=== PATIENT | female | born 1965 | race Caucasian/White ===

== ENCOUNTER → 2018-03-22 | Outpatient (CLI) | payer BC | END | disposition home or self-care (01) | LOC: US 13:51 | DX: R22.1 Localized swelling, mass and lump, neck (principal) | CPT/HCPCS: 76536 ==

== ENCOUNTER → 2018-03-27 | Outpatient (CLI) | payer BC ==
--- NOTE | 2018-03-27 15:24 | RAD ---
Thyroid ultrasound, 03/27/2018: HISTORY: Neck nodule The right lobe of the gland measures 4.5 x 1.5 x 2.1 cm while the left lobe of the gland measures 3.5 x 0.8 x 1.5 cm. The thyroid gland is heterogeneous with multiple nodules on the right. The largest nodule lies at the junction of the right lobe and isthmus. It measures 3.2 x 1.7 x 1.9 cm. It is partially cystic with internal solid appearing mural components as well as echogenic internal foci. Its margins are smooth. It is somewhat bilobed in configuration. There is a 12 x 9 x 13 mm smooth hypoechoic nodule in the upper pole of the right lobe. This appears to be a solid nodule with internal color flow. No definite internal calcifications are seen. Just inferior to this level in the right lobe there is a similar solid 14 x 10 x 12 mm nodule. More inferiorly in the right lobe there are 2 additional small subcentimeter nodules. The most inferior of these measures 8 x 7 x 8 mm. It is rounded in configuration. There appears to be minimal calcification in its rim. The left lobe of the gland is generally heterogeneous. No discrete left thyroid nodule is seen. IMPRESSION: Multinodular thyroid gland with a dominant mixed cystic and solid nodule at the junction of the isthmus and right lobe as described above. Percutaneous biopsy of of this dominant complex nodule is suggested for further evaluation. The other smaller thyroid nodules are mild to moderately suspicious and may be followed sonographically. Electronically signed by: Burt Nation MD (03/27/2018 3:21 PM) [facility]
== END | disposition home or self-care (01) ==
LOC: US 10:09
PROVIDERS: ATTEND Nurse Practitioner Adult Health
DX: E04.1 Nontoxic single thyroid nodule (principal)
CPT/HCPCS: 76536

== ENCOUNTER → 2020-01-30 | Outpatient (CLI) | payer BC ==
--- NOTE | 2020-01-30 10:41 | RAD ---
Ultrasound of the abdomen 01/30/2020 CLINICAL HISTORY: Elevated alkaline phosphatase. TECHNIQUE: A real-time ultrasound examination of the abdomen was performed. Multiple images were obtained. FINDINGS: The gallbladder is not visualized consistent with a cholecystectomy. The liver is normal in size measuring 13.2 cm in length. No focal abnormality of the liver is seen. The common bile duct measures 5 mm in diameter which is within normal limits. The visualized portions of pancreas is within normal limits. The spleen is normal in size measuring 8.7 cm in length. Both kidneys are within normal limits in size and echogenicity. The right kidney measures 10.6 cm in length. The left kidney measures 10.5 cm in length. No hydronephrosis is seen. The proximal/mid abdominal aorta is not well-visualized due to overlying bowel gas. The visualized portions of the abdominal aorta tapers normally. The visualized inferior vena cava is within normal limits. No free fluid is seen. IMPRESSION: 1. Cholecystectomy. 2. Otherwise negative study. Electronically signed by: Audie Esquivel MD (01/30/2020 10:38 AM) [id number]
--- NOTE | 2020-01-30 10:49 | RAD ---
Thyroid ultrasound 01/30/2020 CLINICAL HISTORY: Multinodular goiter. TECHNIQUE: A real-time ultrasound examination of the thyroid gland was performed. Multiple images were obtained. FINDINGS: Comparison study is dated 03/27/2018. The thyroid gland is mildly enlarged and heterogeneous. It measures 4.8 x 1.6 x 2.1 cm in longitudinal, transverse, and AP dimensions. The left lobe of the thyroid gland measures 3.9 x 1.4 x 1.1 cm in size. Multiple rounded and oval-shaped heterogeneous solid nodules are seen scattered throughout both lobes of the thyroid gland, right greater than left. These measure 3 mm to 1.6 cm in size. These findings are consistent with a multinodular goiter. On the previous examination, the patient had a large complex cystic nodule in the isthmus which has since resolved. The remaining nodules are otherwise essentially unchanged. No new nodule is seen. IMPRESSION: Findings are again seen consistent with a multinodular goiter. The 3.2 cm complex cystic mass seen on the previous examination has resolved. The remaining nodules have not significantly changed. No new nodule is seen. Electronically signed by: Audie Esquivel MD (01/30/2020 10:46 AM) [id number]
== END ==
LOC: US 07:44
PROVIDERS: ATTEND Family Medicine
DX: E04.2 Nontoxic multinodular goiter (principal); R74.8 Abnormal levels of other serum enzymes; Z90.49 Acquired absence of other specified parts of digestive tract
CPT/HCPCS: 76536; 76700

== ENCOUNTER → 2021-03-04 | Outpatient (CLI) | payer BC ==
--- NOTE | 2021-03-05 10:48 | KCIC ---
US THYROID History: Multinodular goiter Comparison: 02/29/2020, 03/27/2018 Technique: Multiple grayscale and color Doppler images of the thyroid gland were obtained. Findings: Right thyroid lobe: 4.1 x 2.3 x 1.9 cm. Left thyroid lobe: 3.7 x 1.0 x 1.4 cm. Isthmus: 0.3 cm. Heterogeneous multinodular thyroid without hyperemia. Nodule #1. Maximum size: 1.1 cm; Other 2 dimensions 1.1 x 0.9 cm. Location: Superior right-lateral. Characteristics: Solid, hypoechoic, peripheral calcification, not tolerant and wide, circumscribed ACR TI-RADS risk category: TR4 (4-6 points): FNA if 1.5 cm, follow-up if 1-1.4 cm in 1, 2, 3, and 5 y ears. Significant change in size (>= 20% in two dimensions and minimal increase of 2 mm): No. Change in features: No. Change in ACR TI-RADS risk category: No. Nodule #2. Maximum size: 1.5 cm; Other 2 dimensions 1.4 x 1.2 cm. Location: Superior right-medial. Characteristics: Solid, heterogeneously hypo and isoechoic, circumscribed, not tolerating than wide, no echogenic foci ACR TI-RADS risk category: TR4 (4-6 points): FNA if 1.5 cm, follow-up if 1-1.4 cm in 1, 2, 3, and 5 y ears. Significant change in size (>= 20% in two dimensions and minimal increase of 2 mm): No. Change in features: No. Change in ACR TI-RADS risk category: No. Nodule #3. Maximum size: 0.9 cm; Other 2 dimensions 0.8 x 0.8 cm. Location: Inferior right. Characteristics: Solid, hypoechoic, peripherally calcified, not wider than tall, circumscribed ACR TI-RADS risk category: TR4 (4-6 points): FNA if 1.5 cm, follow-up if 1-1.4 cm in 1, 2, 3, and 5 y ears. Significant change in size (>= 20% in two dimensions and minimal increase of 2 mm): No. Change in features: No. Change in ACR TI-RADS risk category: No. IMPRESSION: 1. Heterogeneous multinodular thyroid. One year stability of moderately suspicious nodules for which repeat ultrasound is recommended in 1 year. ACR Thyroid Imaging, Reporting And Data System (TI-RADS): White Paper Of The ACR TI-RADS Committee. J [employer]urnal of the [employer], volume 14, issue 5, pages 587-595 (December 2016). Electronically signed by: Huber Enriquez MD (03/05/2021 10:46 AM) [facility]
== END ==
LOC: KCIC US 15:28
PROVIDERS: ATTEND Family Medicine
DX: E04.2 Nontoxic multinodular goiter (principal)
CPT/HCPCS: 76536

== ENCOUNTER → 2021-05-06 | Outpatient (CLI) | payer OTHER ==
--- NOTE | 2021-05-06 16:03 | KCIC ---
EXAM: CT coronary artery calcium screening; radiologist over read. HISTORY: Mixed hyperlipidemia. Family history of coronary artery disease. TECHNIQUE: Computed tomographic images of the chest were obtained without contrast. Multiplanar refor matting was performed. *One or more of the following individualized dose reduction techniques were utilized for this examina tion: 1. Automated exposure control. 2. Adjustment of the mA and/or kV according to patient size. 3. Use of iterative reconstruction technique. COMPARISON: None. FINDINGS: The heart is normal in size. The visualized aorta is normal in caliber. There is no lymphad enopathy. There is no infiltrate, pleural effusion or pneumothorax. There is no suspicious pulmonary nodule. There is minimal lingular and right middle lobe scarring. There is no acute finding involving the upper abdomen. There is no suspicious osseous lesion. Coronary artery calcium score: 0. IMPRESSION: 1. Coronary artery calcium score of 0. No identifiable calcified atherosclerotic plaque. 2. No significant incidental thoracic finding. Electronically signed by: Valentina Brandt MD (05/06/2021 4:01 PM) [id number]
== END ==
LOC: KCIC CT 15:28
PROVIDERS: ATTEND Family Medicine
DX: E78.5 Hyperlipidemia, unspecified (principal); J98.4 Other disorders of lung; Z82.49 Family history of ischemic heart disease and other diseases of the circulatory system
CPT/HCPCS: 75571